=== PATIENT | female | born 1955 | race Caucasian/White ===

== ENCOUNTER → 2017-02-28 | Outpatient (CLI) | payer OTHER ==
[~2017-02-28] MED LIST: ALBU90OI6 INH; ALBU90OI61; ATEN50 PO; Armour Thyroid15 MG; BENZ100A PO; BUPR150ER PO; Humulin 70-30 V10 ML SQ; LEVO750 PO; METO25; TRAM50 PO; Ultram50 MG PO
[2017-02-28 19:44] LABS: Influenza A Positive (NEGATIVE); Influenza B Negative (NEGATIVE)
== END | disposition home or self-care (01) ==
LOC: LAB 13:15
PROVIDERS: Physician Assistant
DX: J11.1 Influenza due to unidentified influenza virus with other respiratory manifestations (principal)
CPT/HCPCS: 87804

== ENCOUNTER → 2017-06-04 | Outpatient (CLI) | payer OTHER ==
[~2017-06-04] MED LIST changes: -ALBU90OI61
== END | disposition home or self-care (01) ==
LOC: LAB SHORT 15:10 → LAB 15:10
DX: L03.311 Cellulitis of abdominal wall (principal)
CPT/HCPCS: 87070; 87077; 87186; 87205

== ENCOUNTER 2017-06-05 22:48 | Emergency (ER) | payer OTHER ==
[~2017-06-05] VITALS: Ht 160 cm; Wt 117.9 kg
[~2017-06-05 22:48] MED LIST changes: -LEVO750 PO
[2017-06-06] MEDS ORDERED: Ultram50 MG PO (00:09)
[2017-06-06] MEDS ORDERED: LEVO750 PO (00:09)
== END 2017-06-06 00:55 | disposition home or self-care (01) ==
LOC: ER 22:48
DX: L02.211 Cutaneous abscess of abdominal wall (principal); L03.311 Cellulitis of abdominal wall; I10 Essential (primary) hypertension; E11.9 Type 2 diabetes mellitus without complications; Z88.6 Allergy status to analgesic agent; Z88.0 Allergy status to penicillin; Z88.2 Allergy status to sulfonamides; Z88.5 Allergy status to narcotic agent; Z88.1 Allergy status to other antibiotic agents; Z88.8 Allergy status to other drugs, medicaments and biological substances; Z79.899 Other long term (current) drug therapy; Z79.4 Long term (current) use of insulin
CPT/HCPCS: 99283; J3010

== ENCOUNTER 2017-11-26 10:41 | Day surgery (SDC) | payer OTHER ==
[~2017-11-26] VITALS: Ht 160 cm; Wt 115.4 kg
[~2017-11-26 10:41] MED LIST changes: +LEVO750 PO
[2017-11-26] MEDS ORDERED: ALBU90OI61 (11:11)
== END 2017-11-26 16:17 | disposition home or self-care (01) ==
LOC: ORSCSDS 10:41
PROVIDERS: Orthopaedic Surgery
PROC: 0RNK4ZZ Release Left Shoulder Joint, Percutaneous Endoscopic Approach (ICD-10-PCS; principal; 2017-11-26 12:30)
PROC: 0LQ24ZZ Repair Left Shoulder Tendon, Percutaneous Endoscopic Approach (ICD-10-PCS; principal; 2017-11-26 12:30)
PROC: 0LS24ZZ Reposition Left Shoulder Tendon, Percutaneous Endoscopic Approach (ICD-10-PCS; principal; 2017-11-26 12:30)
PROC: 0RBK4ZZ Excision of Left Shoulder Joint, Percutaneous Endoscopic Approach (ICD-10-PCS; principal; 2017-11-26 12:30)
DX: M75.122 Complete rotator cuff tear or rupture of left shoulder, not specified as traumatic (principal); M75.22 Bicipital tendinitis, left shoulder; M75.42 Impingement syndrome of left shoulder; I10 Essential (primary) hypertension; E11.9 Type 2 diabetes mellitus without complications; E03.9 Hypothyroidism, unspecified; E66.01 Morbid (severe) obesity due to excess calories; Z68.42 Body mass index [BMI] 45.0-49.9, adult; J45.909 Unspecified asthma, uncomplicated; M79.7 Fibromyalgia; G47.33 Obstructive sleep apnea (adult) (pediatric); Z79.4 Long term (current) use of insulin; Z79.899 Other long term (current) drug therapy
CPT/HCPCS: 82947; C1713; J0171; J1100; J2250; J2405; J3010; J3370; J7120

== ENCOUNTER → 2018-12-30 | Outpatient (CLI) | payer OTHER ==
[~2018-12-30] MED LIST changes: +ALBU90OI61
[2019-01-01 15:07] LABS: HPV 16 Negative (Negative); HPV 18 Negative (Negative); HPV OTHER HR TYPES Negative (Negative)
== END | disposition home or self-care (01) ==
LOC: LAB SHORT 19:30 → LAB 19:30
PROVIDERS: Physician Assistant
DX: Z01.419 Encounter for gynecological examination (general) (routine) without abnormal findings (principal)
CPT/HCPCS: 87624; G0123

== ENCOUNTER 2019-08-07 09:14 | Day surgery (SDC) | payer OTHER ==
[~2019-08-07] VITALS: Ht 160 cm; Wt 118.5 kg
[~2019-08-07 09:14] MED LIST changes: +Armour Thyroid90 MG PO; +BUPR75 PO; +Humulin N100 UNIT/1 SC
== END 2019-08-07 14:23 | disposition home or self-care (01) ==
LOC: ORSCSDS 09:14
PROVIDERS: Podiatrist Foot & Ankle Surgery
PROC: 0LQS0ZZ Repair Right Ankle Tendon, Open Approach (ICD-10-PCS; principal; 2019-08-07 11:30)
PROC: 0MQS0ZZ Repair Right Foot Bursa and Ligament, Open Approach (ICD-10-PCS; principal; 2019-08-07 11:30)
PROC: 0LXV0ZZ Transfer Right Foot Tendon, Open Approach (ICD-10-PCS; principal; 2019-08-07 11:30)
DX: S96.811A Strain of other specified muscles and tendons at ankle and foot level, right foot, initial encounter (principal); M67.873 Other specified disorders of tendon, right ankle and foot; M21.41 Flat foot [pes planus] (acquired), right foot; I10 Essential (primary) hypertension; G47.33 Obstructive sleep apnea (adult) (pediatric); J45.909 Unspecified asthma, uncomplicated; E03.9 Hypothyroidism, unspecified; E11.40 Type 2 diabetes mellitus with diabetic neuropathy, unspecified; Z79.84 Long term (current) use of oral hypoglycemic drugs; E66.01 Morbid (severe) obesity due to excess calories; Z68.42 Body mass index [BMI] 45.0-49.9, adult; Z79.899 Other long term (current) drug therapy
CPT/HCPCS: 82947; C1713; J0171; J1100; J2405; J2704; J3010; J3370; J7120

== ENCOUNTER 2020-04-21 06:59 | Day surgery (SDC) | payer OTHER ==
[~2020-04-21] VITALS: Ht 160 cm; Wt 122.1 kg
[~2020-04-21 06:59] MED LIST changes: +HUMULIN R100 UNIT/1 SC
[2020-04-21] MEDS ORDERED: CLOT10 (07:17)
--- NOTE | 2020-04-21 09:01 | NUR ---
04/21/20 0901 Angeles Gates PT SENT HOME IN [place], AMBULATED TO CAR.
== END 2020-04-21 08:55 | disposition home or self-care (01) ==
LOC: ORSCSDS 06:59
PROVIDERS: Orthopaedic Surgery
PROC: 01N50ZZ Release Median Nerve, Open Approach (ICD-10-PCS; principal; 2020-04-21 08:00)
DX: G56.02 Carpal tunnel syndrome, left upper limb (principal); J45.909 Unspecified asthma, uncomplicated; I10 Essential (primary) hypertension; G47.33 Obstructive sleep apnea (adult) (pediatric); E11.9 Type 2 diabetes mellitus without complications; E66.9 Obesity, unspecified; Z68.42 Body mass index [BMI] 45.0-49.9, adult; E66.01 Morbid (severe) obesity due to excess calories; Z79.899 Other long term (current) drug therapy
CPT/HCPCS: 82947; J7120

== ENCOUNTER → 2023-08-09 | Outpatient (CLI) | payer OTHER ==
[~2023-08-09] MED LIST changes: +CLOT10
[2023-08-13 19:19] LABS: CALPROTECTIN,FECAL 5 ug/g (<=49)
== END ==
LOC: LAB 15:36 → LAB SHORT 15:36
PROVIDERS: Physician Assistant Medical
DX: R19.7 Diarrhea, unspecified (principal); R10.13 Epigastric pain
CPT/HCPCS: 83993

== ENCOUNTER 2023-11-22 09:01 | Day surgery (SDC) | payer OTHER ==
[~2023-11-22] VITALS: Wt 116.4 kg
[2023-11-22] MEDS ORDERED: FISH OIL 1,0001 EA10 (09:39)
[2023-11-22] MEDS ORDERED: Lactated Ringer's 1,000 ML IV ONE (09:50)
[2023-11-22] MEDS ORDERED: propofoL 100 ML IV ONE (09:59)
[2023-11-22 11:39] VITALS: BP 138/80
== END 2023-11-22 11:20 | disposition home or self-care (01) ==
LOC: ORSCSDS 09:01
PROVIDERS: Internal Medicine Gastroenterology
PROC: 0DJ08ZZ Inspection of Upper Intestinal Tract, Via Natural or Artificial Opening Endoscopic (ICD-10-PCS; principal; 2023-11-22 10:15)
PROC: 0DBK8ZX Excision of Ascending Colon, Via Natural or Artificial Opening Endoscopic, Diagnostic (ICD-10-PCS; principal; 2023-11-22 10:15)
DX: R19.7 Diarrhea, unspecified (principal); R10.13 Epigastric pain; D12.2 Benign neoplasm of ascending colon; E11.9 Type 2 diabetes mellitus without complications; I10 Essential (primary) hypertension; G47.33 Obstructive sleep apnea (adult) (pediatric); E03.9 Hypothyroidism, unspecified; Z79.4 Long term (current) use of insulin; Z79.899 Other long term (current) drug therapy
CPT/HCPCS: 82947; 88305; J2704